=== PATIENT | male | born 2000 | race Hispanic/Latino ===

== ENCOUNTER 2018-08-11 11:46 | Emergency (ER) | payer BC | END 2018-08-11 12:40 | disposition home or self-care (01) | LOC: NAV ERS 11:46 | DX: F41.9 Anxiety disorder, unspecified (principal); K21.9 Gastro-esophageal reflux disease without esophagitis; Z79.899 Other long term (current) drug therapy | CPT/HCPCS: 93005; 99283 ==

== ENCOUNTER 2024-02-08 11:40 | Outpatient (CLI) | payer BC | END 2024-02-08 11:41 | disposition home or self-care (01) | LOC: NAV RAD 11:40 | PROVIDERS: ATTEND Nurse Practitioner Family | DX: M25.552 Pain in left hip (principal); M54.50 Low back pain, unspecified | CPT/HCPCS: 72100 ==